=== PATIENT | male | born 1995 | race Caucasian/White ===

== ENCOUNTER 2016-12-04 00:46 | Emergency (ER) | payer OTHER ==
[2016-12-04 00:58] VITALS: PULSE 90; TEMP 98.8
[2016-12-04] MEDS ORDERED: LIDOCAINE/EPINEPHR/TETRACAINE 5 ML BOTTLE TOPICAL ONE (01:38)
--- NOTE | 2016-12-04 02:47 | ED ---
Wound/Laceration HPI - General Chief Complaint: Wound/Laceration Stated Complaint: face lac Time Seen by Provider: 12/04/16 01:19 Source: patient Mode of arrival: ambulatory Limitations: no limitations - Related Data Home Medications Medication Instructions Recorded Confirmed No Known Home Medications [No 12/04/16 12/04/16 Known Home Medications] Allergies Allergy/AdvReac Type Severity Reaction Status Date / Time amoxicillin Allergy Unknown Verified 12/04/16 00:59 Childhood cephalexin [From Keflex] Allergy Rash/Hives Verified 12/04/16 00:58 sulfamethoxazole Allergy Rash/Hives Verified 12/04/16 00:59 [From Bactrim] trimethoprim [From Bactrim] Allergy Rash/Hives Verified 12/04/16 00:59 Review of Systems ROS Statement: Those systems with pertinent positive or pertinent negative responses have been documented in the HPI. ROS Other: All systems not noted in ROS Statement are negative. Past Medical History Additional Past Medical History / Comment(s): frequent staph infection, arm, thigh most recently, abx gave allergic rx History of Any Multi-Drug Resistant Organisms: None Reported Past Surgical History: No Surgical Hx Reported Past Psychological History: No Psychological Hx Reported Smoking Status: Never smoker Past Alcohol Use History: Occasional Past Drug Use History: None Reported General Exam Limitations: no limitations Course Vital Signs 12/04/16 00:52 Temperature 98.8 F Pulse Rate 90 Respiratory 18 Rate Blood Pressure 138/87 O2 Sat by Pulse 98 Oximetry Disposition Clinical Impression: Laceration Disposition: HOME SELF-CARE Condition: Good Instructions: Facial Laceration (ED) Referrals: Juan Antonio Driscoll MD [Primary Care Provider] - 1-2 days
[2016-12-04 03:12] VITALS: BP 111/64; RESP 16
== END 2016-12-04 03:11 | disposition home or self-care (01) ==
LOC: EC 00:46
DX: S01.81XA Laceration without foreign body of other part of head, initial encounter (principal); Z88.0 Allergy status to penicillin; Z88.1 Allergy status to other antibiotic agents; Z88.2 Allergy status to sulfonamides; W51.XXXA Accidental striking against or bumped into by another person, initial encounter; Y92.89 Other specified places as the place of occurrence of the external cause
CPT/HCPCS: 99282

== ENCOUNTER 2018-07-08 08:38 | Day surgery (SDC) | payer OTHER ==
[2018-07-04 09:41] VITALS: BMI 25.8
[2018-07-08 08:49] VITALS: TEMP 98
[2018-07-08] MEDS ORDERED: LACTATED RINGERS 1,000 ML IV ONE (08:50)
[2018-07-08] MEDS ORDERED: LIDOCAINE 1% 20 ML VIAL (10MG/ML) FOR IV START INTRADERMA ONE (08:50)
[2018-07-08] MEDS ORDERED: PROPOFOL 10 MG/ML 20 ML VIAL IV ONE (09:21)
--- NOTE | 2018-07-08 09:59 | P.PCN ---
Date of Procedure: 07/08/18 Procedure(s) Performed: Procedure: Esophagogastroduodenoscopy and biopsy. Preoperative diagnosis: Epigastric pain. Postoperative diagnosis: 1. Small sliding hiatal hernia with no obvious esophagitis or complicated reflux disease. 2. Minimal antral gastritis and duodenitis. 3. Multiple biopsies obtained from the duodenum, antrum and esophagus. Preparation and sedation: Was provided by anesthesia. Brief clinical history: The patient is a 23-year-old male who was evaluated in the office because of epigastric pressure/pain of around 2 years duration. No other alarm symptoms. The patient was evaluated for heart disease and in March 2018, he had a panic-like attack during an episode of pain for which he went to urgent care. Multiple EKGs on different occasions were normal. He is currently on omeprazole. Drinks alcohol socially, may have up to 5 drinks on weekends. The patient was scheduled for an ultrasound of the abdomen this morning which he did not complete due to schedule miscommunication. This evaluation is to assess for peptic ulcer disease, complicated reflux disease or other pathology. Procedure: With the patient on his left lateral decubitus position and after informed consent and adequate sedation, I passed the Olympus-GIF H190 video upper endoscope through the cricopharyngeus down the esophagus. GE junction was around 40 cm from the incisors and there was a small sliding hiatal hernia of around 1 cm in size but there was no obvious esophagitis or complicated reflux disease. The endoscope was then passed into the stomach which was insufflated with air and inspected in detail including the retroflex view in the cardia. There was minimal mottling and erythema in the antrum but no ulcers or erosions. Pyloric channel did not show any ulcers. Duodenal bulb, post bulbar area and descending duodenum showed minimal erythema with no ulcers or erosions. I obtained biopsies from the duodenum, antrum and esophagus then the endoscope was withdrawn. The patient tolerated the procedure well. Plan: The patient was reassured. Will await biopsy results. I would still ask that he completes the ultrasound of the abdomen and I will see him in follow-up and I will keep you updated on his progress.
[2018-07-08 10:01] VITALS: RESP 16
[2018-07-08 10:23] VITALS: BP 124/78; PULSE 46
== END 2018-07-08 11:06 | disposition home or self-care (01) ==
LOC: ORWHC2ENDO 08:38
DX: K29.50 Unspecified chronic gastritis without bleeding (principal); K44.9 Diaphragmatic hernia without obstruction or gangrene; K29.80 Duodenitis without bleeding; K21.0 Gastro-esophageal reflux disease with esophagitis; Z88.2 Allergy status to sulfonamides; Z88.0 Allergy status to penicillin; Z88.1 Allergy status to other antibiotic agents; Z79.899 Other long term (current) drug therapy
CPT/HCPCS: 88305; 43239; J2704

== ENCOUNTER → 2018-07-17 | Outpatient (CLI) | payer OTHER ==
--- NOTE | 2018-07-17 08:56 | US ---
EXAMINATION TYPE: US abdomen complete DATE OF EXAM: 07/17/2018 COMPARISON: NONE CLINICAL HISTORY: R10.13 Epigastric pain. Epigastric pain/pressure/gas. NPO. No surgeries. EXAM MEASUREMENTS: Liver Length: 14.9 cm Gallbladder Wall: 0.2 cm CBD: 0.2 cm CHD: 0.2 cm Spleen: 10.5 cm Right Kidney: 11.1 x 4.9 x 4.6 cm Left Kidney: 10.5 x 5.3 x 5.9 cm Pancreas: Head and tail not well visualized due to overlying bowel gas Liver: wnl Gallbladder: wnl Evidence for sonographic Gonzalez's sign: neg CBD: wnl CHD: wnl Spleen: wnl Right Kidney: wnl Left Kidney: wnl Upper IVC: wnl Abd Aorta: No AAA visualized The liver is homogenous. The intrahepatic portion of the IVC and proximal abdominal aorta are within normal limits. There is no evidence of cholelithiasis. Common bile duct is unremarkable. The visu alized portions of the pancreas are homogenous. The spleen is unremarkable. Kidneys are symmetric a nd free of hydronephrosis. No renal lesions are seen. IMPRESSION: No sonographic evidence of cholelithiasis or acute cholecystitis. Unremarkable abdominal ultrasound.
== END | disposition home or self-care (01) ==
LOC: RADUSWWP 07:00
DX: R10.13 Epigastric pain (principal)
CPT/HCPCS: 76700

== ENCOUNTER → 2021-03-10 | Outpatient (CLI) | payer OTHER ==
[2021-03-10 11:21] LABS: HCT 46.2 % (39.6-50.0); HGB 15.4 g/dL (13.0-17.0); MCH 30.3 pg (27.0-32.0); MCHC 33.3 g/dL (32.0-37.0); MCV 90.9 fL (80.0-97.0); Mean Platelet Volume 10.6 fL (9.5-12.2); Platelet Count 239 X 10*3/uL (140-440); RBC 5.08 X 10*6/uL (4.40-5.60); RDW 11.9 % (11.5-14.5); WBC 7.59 X 10*3/uL (4.50-10.00)
[2021-03-10 13:00] LABS: BUN/Creat Ratio 20.84 Ratio (12.00-20.00); Prolactin 18.5 ng/mL (2.100-17.700); T4, Free (Free Thyroxine) 1.42 ng/dL (0.800-1.800)
[2021-03-10 13:01] LABS: African American GFR (CKD) 111.2 (60.0-200.0); Albumin 4.9 g/dL (3.8-4.9); Albumin/Globulin Ratio 2.46 (1.60-3.17); Anion Gap 13.1 mmol/L (4.00-12.00); Blood Urea Nitrogen 22.3 mg/dL (9.0-27.0); Calcium 9.7 mg/dL (8.7-10.3); Carbon Dioxide 22.1 mmol/L (21.6-31.8); Potassium 4.7 mmol/L (3.5-5.5); Total Bilirubin 0.5 mg/dL (0.30-1.20); Total Protein 6.9 g/dL (6.2-8.2)
[2021-03-10 14:03] LABS: Thyroid Peroxidase Antibodies <9.0 U/mL (0.0-33.0)
== END | disposition home or self-care (01) ==
LOC: LABWHC1 07:27
PROVIDERS: ATTEND Internal Medicine Endocrinology, Diabetes & Metabolism
DX: R53.83 Other fatigue (principal)
CPT/HCPCS: 36415; 80053; 82024; 82533; 82607; 84146; 84403; 84439; 84443; 84481; 85027; 86376

== ENCOUNTER → 2021-03-23 | Outpatient (CLI) | payer OTHER ==
[2021-03-23 13:01] LABS: Follicle Stimulating Hormone 5.2 mIU/mL; Luteinizing Hormone 7.8 mIU/mL
== END | disposition home or self-care (01) ==
LOC: LABWHC1 07:28
PROVIDERS: ATTEND Internal Medicine Endocrinology, Diabetes & Metabolism
DX: R53.83 Other fatigue (principal)
CPT/HCPCS: 36415; 83001; 83002; 84305; 84403

== ENCOUNTER → 2022-01-12 | Outpatient (CLI) | payer OTHER ==
--- NOTE | 2022-01-12 14:51 | US ---
EXAMINATION TYPE: US st tissue head/neck DATE OF EXAM: 01/12/2022 COMPARISON: NONE CLINICAL HISTORY: 26-year-old male LEFT POST AURICULAR NODULE R59.0. Left post auricular palpable mas s for 3 months, unchanged in size, non-tender. 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 No other abnormalities visualized. Comparison made to right post auricular neck reveals a normal appearing lymph node measuring 10 x 7 x 3 mm IMPRESSION: The palpable area along the left postauricular region corresponds to a prominent 9 mm short axis lymp h node. There is a similar but slightly smaller lymph node on the right measuring 7 mm short axis. Th is can be followed clinically. If any enlargement, the area can be rescanned.
== END | disposition home or self-care (01) ==
LOC: RADUSWWP 07:46
PROVIDERS: ATTEND Otolaryngology
DX: R59.0 Localized enlarged lymph nodes (principal)
CPT/HCPCS: 76536

== ENCOUNTER → 2022-01-25 | Outpatient (CLI) | payer OTHER ==
[2022-01-26 13:13] LABS: Latex IgE Class CLASS 0/1
[2022-01-28 16:30] LABS: Beef IgG 10.9 mcg/mL (<2.0); Cow's Milk IgG 66.1 mcg/mL (<2.0); Peanut IgG 2.3 mcg/mL (<2.0); Pork IgG 2.7 mcg/mL (<2.0); Soybean IgG <2.0 mcg/mL (<2.0); Tomato IgG 3.4 mcg/mL (<2.0); Wheat IgG 15.1 mcg/mL (<2.0)
[2022-01-28 16:31] LABS: Chicken Meat IgG <2.0 mcg/mL (<2.0); Corn IgG 2.5 mcg/mL (<2.0); Potato IgG 2.5 mcg/mL (<2.0)
== END | disposition home or self-care (01) ==
LOC: LABWHC1 07:15
PROVIDERS: ATTEND Otolaryngology
DX: J30.89 Other allergic rhinitis (principal)
CPT/HCPCS: 36415; 86001; 86003

== ENCOUNTER → 2022-03-10 | Outpatient (CLI) | payer OTHER ==
[2022-03-13 14:01] LABS: Avocado Class CLASS 0; Banana IgE Class CLASS 0; Hazelnut IgE <0.10 kU/L (<0.10); Hazelnut IgE Class CLASS 0; Kiwi IgE <0.10 kU/L (<0.10); Kiwi IgE Class CLASS 0
== END | disposition home or self-care (01) ==
LOC: LABWHC1 07:10
PROVIDERS: ATTEND Otolaryngology
DX: J30.89 Other allergic rhinitis (principal)
CPT/HCPCS: 36415; 86003

== ENCOUNTER → 2024-08-13 | Outpatient (CLI) | payer OTHER ==
[2024-08-13 23:25] LABS: Cryptosporidium Antigen Negative (Negative)
== END | disposition home or self-care (01) ==
LOC: LABWHC1 07:29
PROVIDERS: ATTEND Emergency Medicine
DX: K52.9 Noninfective gastroenteritis and colitis, unspecified (principal)
CPT/HCPCS: 36415; 83993; 87045; 87046; 87328; 87329

== ENCOUNTER 2024-12-03 06:27 | Day surgery (SDC) | payer OTHER ==
[2024-11-27 09:33] VITALS: BMI 25.8
[~2024-12-03 06:27] MED LIST: LIDOCAINE 1% (10MG/ML) FOR IV START INTRADERMA PRN
[2024-12-03] MEDS: IV FLUID CONTINUATION 1,000 ML IV ONE ×2 (06:53→08:01)
[2024-12-03 07:01] VITALS: RESP 16; TEMP 97.3
[2024-12-03] MEDS: LACTATED RINGERS 1,000 ML IV SCH (07:02)
[2024-12-03] MEDS ORDERED: LIDOCAINE 1% INJ 10MG/ML (20 ML MDV) ONE (08:03)
[2024-12-03] MEDS ORDERED: PROPOFOL 10 MG/ML 20 ML VIAL IV ONE (08:03)
--- NOTE | 2024-12-03 08:25 | P.PCN ---
Date of Procedure: 12/03/24 Procedure(s) Performed: Brief history: Patient is a pleasant 29-year-old white male scheduled for an elective upper endoscopy as well as colonoscopy as a part of evaluation of GERD/history of eosinophilic esophagitis and chronic diarrhea for the last few months duration. He has 3-4 loose bowel movements daily with no bleeding. Procedure performed: Esophagogastroduodenoscopy with biopsy Colonoscopy with biopsy Preoperative diagnosis: GERD/history of EOE Chronic diarrhea Anesthesia: MAC Procedure: After informed consent was obtained from the patient was brought into the endoscopy unit and IV sedation was administered by anesthesia under continuous monitoring. Initially upper endoscopy was done. The Olympus GF 160 video endoscope was inserted inserted into the mouth and esophagus intubated without any difficulty and was gradually advanced into the stomach and duodenum and carefully examined. The bulb and second part of the duodenum appeared normal. The scope was then withdrawn into the stomach adequately insufflated with air and upon careful examination the antrum and body, cardia and fundus appeared normal. The scope was then withdrawn into the esophagus. Small hiatal hernia noted. The GE junction was located at 40 cm to the incisors. It appeared regular with no erythema erosions or ulcerations. There was thickened distal and mid esophageal mucosal folds consistent with eosinophilic esophagitis and multiple biopsies were done from this area.. Patient tolerated the procedure well. At this time the patient continued to remain sedation. Initial digital rectal examination was normal. Olympus CF 160 video colonoscope was then inserted into the rectum and gradually advanced to the cecum without any difficulty. Careful examination was performed as the scope was gradually being withdrawn. The prep was excellent. Terminal ileum was intubated and 20 cm visualized and appeared normal. The cecum, ascending colon, transverse colon, descending colon, sigmoid colon and rectum appeared normal. Biopsies were done from the ascending and descending colon to microscopic/collagenous colitis. Retroflexion was performed in the rectum and no lesions were noted. Patient tolerated the procedure well. Impression: 1. Upper endoscopy revealed mild antral gastritis, small hiatal hernia thickened distal esophageal folds status post biopsies evaluate for eosinophilic esophagitis 2. Colonoscopy was within normal limits with no evidence of colorectal neoplasia Recommendations: Findings of this examination were discussed with the patient as well as his family. He was advised to follow with the biopsy results. Follow-up in office in 2 weeks.
[2024-12-03 09:24] VITALS: BP 123/89; PULSE 71
== END 2024-12-03 09:15 ==
LOC: ORWHC2ENDO 06:27
PROVIDERS: ATTEND Internal Medicine Gastroenterology
DX: K52.9 Noninfective gastroenteritis and colitis, unspecified (principal); K22.89 Other specified disease of esophagus; K21.9 Gastro-esophageal reflux disease without esophagitis; K31.89 Other diseases of stomach and duodenum; K44.9 Diaphragmatic hernia without obstruction or gangrene; Z79.899 Other long term (current) drug therapy; Z88.1 Allergy status to other antibiotic agents; Z88.0 Allergy status to penicillin; Z88.2 Allergy status to sulfonamides
CPT/HCPCS: 88305; 45380; 43239; J2003; J2704